=== PATIENT | male | born 1975 | race Caucasian/White ===

== ENCOUNTER 2020-12-07 08:03 | Emergency (ER) | payer SELFPAY ==
[2020-12-07 08:04] VITALS: BP 135/85; PULSE 97; RESP 18; TEMP 37; O2SAT 94; BMI 44.9
[2020-12-07 08:12] VITALS: O2SAT 91
[2020-12-07 08:30] VITALS: O2SAT 97
--- NOTE | 2020-12-07 08:36 | EKG12_ITS ---
Test Reason : Blood Pressure : / mmHG Vent. Rate : 080 BPM Atrial Rate : 080 BPM P-R Int : 146 ms QRS Dur : 094 ms QT Int : 376 ms P-R-T Axes : 039 006 031 degrees QTc Int : 433 ms Normal sinus rhythm Normal ECG Confirmed by KODY NOGUEIRA, EMIR ([id number]), content editor ASHLI ARIAS ([id number]) on 12/08/2020 8:21:28 AM Referred By: ERIC Confirmed By:MITRA AGTES MD
--- NOTE | 2020-12-07 08:36 | RAD_ITS ---
STUDY: X-RAY CHEST REASON FOR EXAM: Male, 45 years old. Cough TECHNIQUE: Single AP portable view of the chest. COMPARISON: None. FINDINGS: EKG electrodes are seen. Patchy bilateral pulmonary infiltrates more prominent in the left hemithorax. There is no demonstrated pleural abnormality. Normal size heart. Normal mediastinum and gustavo. Normal visualized pulmonary arteries. Normal visualized aortic arch and descending thoracic aorta. Normal visualized thoracic spine. Normal visualized ribs, clavicles, and shoulders. There is no demonstrated abnormality of the visualized soft tissue structures of the upper abdomen. RAD/Chest 1 View (Portable) IMPRESSION: Patchy bilateral pulmonary infiltrates more prominent in the left hemithorax. Electronically Signed: Jl Ceballos MD at 9:20 EDT , Service support ,
--- NOTE | 2020-12-07 08:36 | ED.VIS.GEN ---
History of Present Illness Chief Complaint: Shortness of Breath Informant: Patient Narrative: 45-year-old male states that last Friday he woke with headache loss of taste and smell myalgias and was tested for COVID-19 on . He states that test was positive. Over the past couple days he states his breathing has worsened. He notes significant fatigue. He states the past 2 days he has been fever free. Patient states he has been able to eat and drink. Diarrhea has been mild. He denies any known lung conditions. He denies being treated for any medical problems. Past Medical History - Allergies and Home Meds Allergies/Adverse Reactions: Allergies No Known Allergies Allergy (Verified 12/07/20 08:07) Primary Care Physician: Bean Marinelli DO [STAFF PHYSICIAN] - As Needed Past Medical History: None Surgical History: noncontributory Smoking Status: Never smoker Drugs: None Review of Systems General: Reports: Chills, Fever, Malaise. Denies: Sweats Eyes: Denies: Visual changes - bilaterally, Diplopia ENT: Reports: - - Loss of taste and smell. Denies: Rhinorrhea, Sore throat Cardiovascular: Denies: Chest pain, Palpitations Respiratory: Reports: Dyspnea, Cough, Dyspnea on exertion Gastrointestinal: Reports: Nausea, Diarrhea. Denies: Abdominal pain, Vomiting, Melena, Hematochezia Genitourinary: Denies: Dysuria, Hematuria, Frequency Musculoskeletal: Reports: Myalgias. Denies: Back pain, Extremity Pain Skin: Denies: Rash, Wounds Neurological: Reports: Headache. Denies: Weakness, Numbness Physical Exam Vital Signs/Narrative: Vital Signs Temp Pulse Resp BP Pulse Ox 12/07/20 08:04 98.6 F 97 18 135/85 H 94 Inital Vital Signs reviewed: Yes General: Well nourished, Well developed, Obese, No Acute Distress Head: Normocephalic, Atraumatic Eyes: Perrl, EOMI ENT: Moist mucous membranes, No rhinorrhea Neck: Supple, Nontender Cardiovascular: Regular rate, Regular rhythm, No murmurs Respiratory: No distress, CTA bilaterally, Chest nontender Abdomen: Soft, Nontender, Nondistended, Normal bowel sounds Back: Nontender, Normal Inspection Extremities: Nontender, No edema Skin: Normal color, No rash Neurological: Alert, Oriented x3, Cranial nerves II-XII grossly intact, Normal Strength, Normal Sensation Psychological: Normal affect, Normal Mood Diagnostic/Tx/Re-eval Clinical Impression(s) from Imaging Studies Chest X-Ray 12/07/20 08:36 IMPRESSION: Patchy bilateral pulmonary infiltrates more prominent in the left hemithorax. Electronically Signed: Jl Ceballos MD at 9:20 EDT , Service support , Chest CTA 12/07/20 09:51 IMPRESSION: Scattered bilateral patchy infiltrates in the tendency towards a peripheral distribution as described. This is suggestive of a pneumonitis associated with Covid19 infection. Electronically Signed: Jl Ceballos MD at 10:31 EDT , Service support , Laboratory Last Values WBC 7.6 K/mm3 (4.4-11.0) 12/07/20 08:25 RBC 4.97 M/mm3 (4.6-6.2) 12/07/20 08:25 Hgb 15.4 g/dL (13.0-16.5) 12/07/20 08:25 Hct 45.4 % (40-54) 12/07/20 08:25 MCV 91.3 fL (80-94) 12/07/20 08:25 MCH 31.0 pg (27.0-32.0) 12/07/20 08:25 MCHC 33.9 g/dL (32-36) 12/07/20 08:25 RDW Std Deviation 40.5 fl (35.1-43.9) 12/07/20 08:25 RDW Coeff of Annalisa 12.1 % (11.6-14.6) 12/07/20 08:25 Plt Count 198 K/mm3 (150-450) 12/07/20 08:25 MPV 10.1 fl (6.2-12.0) 12/07/20 08:25 Immature Gran % (Auto) 0.700 % (0.0-0.9) 12/07/20 08:25 Neut % (Auto) 65.0 % (47-70) 12/07/20 08:25 Lymph % (Auto) 24.0 % (19-41) 12/07/20 08:25 [place] % (Auto) 9.7 % (0-10) 12/07/20 08:25 Eos % (Auto) 0.3 % (0-5) 12/07/20 08:25 Baso % (Auto) 0.3 % (0-1) 12/07/20 08:25 Absolute Neuts (auto) 5.0 X10^3/uL (2.0-7.7) 12/07/20 08:25 Absolute Lymphs (auto) 1.83 X10^3/uL (0.83-4.51) 12/07/20 08:25 Nucleated RBC % 0 % (0-5) 12/07/20 08:25 Fibrinogen 611 mg/dl (203-444) H 12/07/20 08:25 D-Dimer Quant (PE/DVT) 0.80 FEU/ug/m (0.27-0.49) H* 12/07/20 08:25 Sodium 138 mmol/L (136-145) 12/07/20 08:25 Potassium 3.5 mmol/L (3.5-5.1) 12/07/20 08:25 Chloride 105 mmol/L (98-107) 12/07/20 08:25 Carbon Dioxide 28.0 mmol/L (21.0-32.0) 12/07/20 08:25 Anion Gap 5 (5-15) 12/07/20 08:25 BUN 14 mg/dL (7-18) 12/07/20 08:25 Creatinine 1.10 mg/dL (0.70-1.30) 12/07/20 08:25 Estim Creat Clear Calc 96.52 ml/min 12/07/20 08:25 Est GFR (MDRD) Af Amer 92 mL/min (>60) 12/07/20 08:25 Est GFR (MDRD) Non-Af 76 mL/min (>60) 12/07/20 08:25 BUN/Creatinine Ratio 12.7 RATIO (10-20) 12/07/20 08:25 Glucose 112 mg/dL (74-106) H 12/07/20 08:25 Lactic Acid 1.4 mmol/L (0.4-1.9) 12/07/20 09:07 Calcium 8.5 mg/dL (8.5-10.1) 12/07/20 08:25 Total Bilirubin 0.70 mg/dL (0.20-1.00) 12/07/20 08:25 AST 52 U/L (15-37) H 12/07/20 08:25 ALT 74 U/L (16-61) H 12/07/20 08:25 Alkaline Phosphatase 70 U/L (45-117) 12/07/20 08:25 Lactate Dehydrogenase 250 U/L (87-241) H 12/07/20 08:25 Total Creatine Kinase 231 U/L (39-308) 12/07/20 08:25 Troponin I < 0.015 ng/mL (<0.045) 12/07/20 08:25 C-React Prot Ext Range 98.10 mg/L (0.0-3.0) H 12/07/20 08:25 Total Protein 7.4 g/dL (6.4-8.2) 12/07/20 08:25 Albumin 3.2 g/dL (3.2-5.0) 12/07/20 08:25 Globulin 4.2 g/dL (2.2-4.2) 12/07/20 08:25 Albumin/Globulin Ratio 0.8 RATIO (0.9-2.4) L 12/07/20 08:25 Procalcitonin 0.08 ng/mL (0.00-0.09) 12/07/20 08:25 - Medical Decision Making Patient did not become hypoxic with ambulation from triage to his room. Interpretation of his chest x-ray is multifocal infiltrates in keeping with the COVID-19 diagnosis. His D-dimer was substantially elevated and therefore a CTA was ordered. Was negative for pulmonary embolism or effusions. Patient is maintaining his sats in the mid 90s on room air. Patient was advised that he may worsen and require a repeat examination in the emergency department and even hospitalization. We will start him on Decadron and albuterol MDI. Patient notes understanding of the plan. On the screening it appears the patient may qualify for a monoclonal antibody infusion. I will make that referral. ED Disposition - Plan for ED Patient: Disposition: Home or Assisted Living Diagnosis: COVID-19, Dyspnea Instructions: Coronavirus Disease 2019 (COVID-19): Caring for Yourself or Others Prescriptions: Dexamethasone [Decadron] 6 mg PO DAILY 5 Days #5 tablet Transmission Status: Received by [facility]/pharmacy #[id number] Albuterol Inhaler [Ventolin Hfa] 2 puff INHALATION Q4H PRN PRN #1 inhaler PRN Reason: Dyspnea Transmission Status: Received by [facility]/pharmacy #[id number] Referrals: Bean Marinelli DO [STAFF PHYSICIAN] - As Needed
--- NOTE | 2020-12-07 08:38 | NURSING ---
NO OLD EKGS
[2020-12-07 09:03] LABS: Absolute Lymphocyte Count 1.83 X10^3/uL (0.83-4.51); Basophil# 0.02 X10^3/uL; Basophil% 0.3 % (0-1); Eosinophil# 0.02 X10^3/uL; Eosinophils% 0.3 % (0-5); Hematocrit 45.4 % (40-54); Hemoglobin 15.4 g/dL (13.0-16.5); Lymphocyte # 1.83 X10^3/ul (0.83-4.51); Mean Corp Hgb Conc 33.9 g/dL (32-36); Mean Corpuscular Volume 91.3 fL (80-94); Mean Platelet Vol. 10.1 fl (6.2-12.0); Monocyte# 0.74 X10^3/uL; Monocyte% 9.7 % (0-10); NRBC Flagged by Analyzer 0 % (0-5); Neutrophil # 4.96 X10^3/uL (2.7-7.7); Platelet Count 198 K/mm3 (150-450); RBC Distribution Width CV 12.1 % (11.6-14.6); RBC Distribution Width SD 40.5 fl (35.1-43.9); Red Blood Count 4.97 M/mm3 (4.6-6.2); White Blood Count 7.6 K/mm3 (4.4-11.0)
[2020-12-07 09:04] VITALS: BP 114/79; PULSE 82; RESP 16; TEMP 37.1; O2SAT 95
[2020-12-07 09:11] LABS: Fibrinogen 611 mg/dl (203-444)
[2020-12-07 09:15] LABS: ALB/GLOB Ratio 0.8 RATIO (0.9-2.4); AST(SGOT) 52 U/L (15-37); Alanine Aminotransfer ALT/SGPT 74 U/L (16-61); Albumin, Serum 3.2 g/dL (3.2-5.0); Alkaline Phosphatase 70 U/L (45-117); Anion Gap 5 (5-15); BUN 14 mg/dL (7-18); BUN/Creat Ratio 12.7 RATIO (10-20); CPK Total, Creatine Kinase 231 U/L (39-308); Calcium,Total 8.5 mg/dL (8.5-10.1); Chloride 105 mmol/L (98-107); EST Glomerular Filtration Rate 76 mL/min (>60); Est Glom Filt Rate - Afr Amer 92 mL/min (>60); Estimated Creatinine Clearance 96.52 ml/min; Globulin 4.2 g/dL (2.2-4.2); Glucose 112 mg/dL (74-106); LDH 250 U/L (87-241); Potassium 3.5 mmol/L (3.5-5.1); Protein, Total 7.4 g/dL (6.4-8.2); Sodium Level 138 mmol/L (136-145)
[2020-12-07 09:20] LABS: Procalcitonin 0.08 ng/mL (0.00-0.09)
[2020-12-07 09:41] LABS: Lactic Acid 1.4 mmol/L (0.4-1.9)
--- NOTE | 2020-12-07 09:51 | CT_ITS ---
STUDY: CTA CHEST REASON FOR EXAM: Male, 45 years old. COVID 19 positive. Elevated DDimer Dyspnea. RADIATION DOSAGE (If Supplied By Facility): CTDIvol = ( 17.41 ) mGy, DLP = ( 601.59 ) mGycm TECHNIQUE: The examination was performed with the intravenous administration of IV 100mL Isovue-370. Post-processing of the angiographic images was performed, with multiplanar reformation and 3D reconstruction. Individualized dose optimization techniques were used for this CT. COMPARISON: Comparison is made with prior chest radiograph done earlier in the day. FINDINGS: Normal enhancement of the main pulmonary artery and right and left pulmonary arteries. Normal enhancement of the bilateral peripheral pulmonary arteries. There is no demonstrated pulmonary embolism. Normal thoracic aorta and visualized great vessels. There is no demonstrated aortic dissection. Normal heart and pericardium. Normal mediastinum. Normal hilar regions. Normal visualized trachea and bronchi. The lungs are well expanded. Patchy infiltrate is seen in the anterior right upper lobe. Scattered bilateral patchy infiltrates are seen in both upper lobes and lower lobes worse in the left hemithorax. There is a tendency toward peripheral distribution. This is suggestive of pneumonitis associated with Covid 19 Normal pleura. Normal chest wall structures. Normal osseous structures. Normal visualized upper abdomen. CT/CTA Chest W/WO Contrast IMPRESSION: Scattered bilateral patchy infiltrates in the tendency towards a peripheral distribution as described. This is suggestive of a pneumonitis associated with Covid19 infection. Electronically Signed: Jl Ceballos MD at 10:31 EDT , Service support ,
[2020-12-07 11:01] VITALS: BP 114/76; PULSE 81; RESP 18; O2SAT 92
== END 2020-12-07 11:02 | disposition home or self-care (01) ==
PROVIDERS: Emergency Provider Emergency Medicine
DX: U07.1 COVID-19 (principal); E66.9 Obesity, unspecified; Z68.41 Body mass index [BMI] 40.0-44.9, adult
CPT/HCPCS: 71045; 71275; 80053; 82550; 83605; 83615; 84145; 84484; 85025; 85379; 85384; 86140; 93005; 99285; Q9967; A4216

== ENCOUNTER 2020-12-08 14:26 | Outpatient (CLI) | payer SELFPAY ==
[2020-12-07 12:55] VITALS: BMI 44.9
[2020-12-08] VITALS (7 sets, daily range): BP systolic 123–133; BP diastolic 78–91; PULSE 68–80; RESP 16–18; TEMP 36.5–36.6; O2SAT 93–95; BMI 45.0
[2020-12-08] MEDS: 0.9% Saline Lock 10 ML Syringe IV ×2 (14:45→16:15)
== END 2020-12-08 17:15 | disposition home or self-care (01) ==
LOC: ICUOUT 14:27 → ICU 14:31
PROVIDERS: Referring Provider Nurse Practitioner Acute Care; Visit Provider Nurse Practitioner Acute Care
DX: U07.1 COVID-19 (principal)
CPT/HCPCS: J7050; M0243; A4216; Q0240

== ENCOUNTER → 2021-06-04 16:52 | Outpatient (CLI) | payer SELFPAY ==
[2021-06-04 17:50] LABS: Absolute Lymphocyte Count 4.05 X10^3/uL (0.83-4.51); Absolute Neutrophil Count 5.7 X10^3/uL (2.0-7.7); Basophil# 0.08 X10^3/uL; Basophil% 0.7 % (0-1); Eosinophil# 0.35 X10^3/uL; Eosinophils% 3.1 % (0-5); Hematocrit 47.8 % (40-54); Hemoglobin 16.6 g/dL (13.0-16.5); Lymphocyte # 4.05 X10^3/ul (0.83-4.51); Lymphocyte % 35.6 % (19-41); Mean Corp Hgb Conc 34.7 g/dL (32-36); Mean Corpuscular Hgb 31.7 pg (27.0-32.0); Mean Corpuscular Volume 91.2 fL (80-94); Mean Platelet Vol. 9.6 fl (6.2-12.0); Monocyte# 1.07 X10^3/uL; Monocyte% 9.4 % (0-10); NRBC Flagged by Analyzer 0 % (0-5); Neutrophil # 5.74 X10^3/uL (2.7-7.7); Neutrophil % 50.5 % (47-70); Platelet Count 290 K/mm3 (150-450); RBC Distribution Width CV 12.2 % (11.6-14.6); Red Blood Count 5.24 M/mm3 (4.6-6.2); White Blood Count 11.4 K/mm3 (4.4-11.0)
[2021-06-04 18:40] LABS: Vitamin B12 387 pg/mL (211-911); Vitamin D,25 Hydroxy 15.4 ng/mL
[2021-06-04 18:46] LABS: AST(SGOT) 27 U/L (15-37); Alanine Aminotransfer ALT/SGPT 49 U/L (16-61); Albumin, Serum 3.7 g/dL (3.2-5.0); Alkaline Phosphatase 78 U/L (45-117); Anion Gap 9 (5-15); BUN 15 mg/dL (7-18); BUN/Creat Ratio 15.2 RATIO (10-20); Calcium,Total 9.2 mg/dL (8.5-10.1); Chloride 107 mmol/L (98-107); Cholesterol 239 mg/dL (200); Creatinine, Serum 0.99 mg/dL (0.70-1.30); EST Glomerular Filtration Rate 86 mL/min (>60); Est Glom Filt Rate - Afr Amer 104 mL/min (>60); Globulin 3.8 g/dL (2.2-4.2); Glucose 80 mg/dL (74-106); High Density Lipoprotein 29 mg/dL; Potassium 3.6 mmol/L (3.5-5.1); Protein, Total 7.5 g/dL (6.4-8.2); Sodium Level 140 mmol/L (136-145); T4 Free Direct 0.85 ng/dL (0.76-1.46); Thyroid Stim Hormone (TSH) 1.42 uIU/mL (0.358-3.74); Triglycerides 519 mg/dL
[2021-06-09 17:07] LABS: Testosterone, Free 9.93 ng/dL (5.00-21.00)
[2021-06-09 18:08] LABS: Testosterone, % Free 3.79 % (1.50-4.20); Testosterone, Total 262 ng/dL (264-916)
== END ==
PROVIDERS: Visit Provider Family Medicine
DX: R53.83 Other fatigue (principal); E66.01 Morbid (severe) obesity due to excess calories
CPT/HCPCS: 36415; 80053; 80061; 82306; 82607; 84402; 84403; 84439; 84443; 85025

== ENCOUNTER → 2021-06-14 08:11 | Outpatient (CLI) | payer SELFPAY ==
[2021-06-14 10:51] LABS: Cholesterol 212 mg/dL (200); High Density Lipoprotein 35 mg/dL; Triglycerides 321 mg/dL; Very Low Density Lipoprotein 64 mg/dL (5-40)
== END ==
PROVIDERS: PCP Family Medicine; Referring Provider Family Medicine; Visit Provider Family Medicine
DX: E66.01 Morbid (severe) obesity due to excess calories (principal)
CPT/HCPCS: 36415; 80061

== ENCOUNTER → 2024-04-08 | Outpatient (CLI) | payer SELFPAY ==
[2024-04-08 17:34] LABS: Absolute Lymphocyte Count 3.84 X10^3/uL (0.83-4.51); Basophil# 0.08 X10^3/uL; Basophil% 0.7 % (0-1); Eosinophil# 0.31 X10^3/uL; Eosinophils% 2.8 % (0-5); Hematocrit 49.9 % (40-54); Lymphocyte # 3.84 X10^3/ul (0.83-4.51); Lymphocyte % 34.8 % (19-41); Mean Corp Hgb Conc 34.1 g/dL (32-36); Mean Corpuscular Volume 90.9 fL (80-94); Mean Platelet Vol. 9.7 fl (6.2-12.0); Monocyte# 0.78 X10^3/uL; Monocyte% 7.1 % (0-10); NRBC Flagged by Analyzer 0 % (0-5); Neutrophil # 5.96 X10^3/uL (2.7-7.7); Neutrophil % 53.9 % (47-70); Platelet Count 265 K/mm3 (150-450); RBC Distribution Width CV 12.1 % (11.6-14.6); RBC Distribution Width SD 40.6 fl (35.1-43.9); Red Blood Count 5.49 M/mm3 (4.6-6.2); White Blood Count 11.1 K/mm3 (4.4-11.0)
[2024-04-08 18:03] LABS: Vitamin D,25 Hydroxy 23.6 ng/mL
[2024-04-08 18:15] LABS: ALB/GLOB Ratio 0.9 RATIO (0.9-2.4); AST(SGOT) 27 U/L (15-37); Alanine Aminotransfer ALT/SGPT 43 U/L (16-61); Albumin, Serum 3.7 g/dL (3.2-5.0); Alkaline Phosphatase 78 U/L (45-117); Anion Gap 8 (5-15); BUN 15 mg/dL (7-18); BUN/Creat Ratio 16.5 RATIO (10-20); Calcium,Total 9.1 mg/dL (8.5-10.1); Chloride 108 mmol/L (98-107); Cholesterol 241 mg/dL (200); Creatinine, Serum 0.91 mg/dL (0.70-1.30); EST Glomerular Filtration Rate 93 mL/min (>60); Est Glom Filt Rate - Afr Amer 113 mL/min (>60); Globulin 3.9 g/dL (2.2-4.2); Glucose 102 mg/dL (74-106); High Density Lipoprotein 35 mg/dL; Magnesium 2.3 mg/dL (1.6-2.6); Protein, Total 7.6 g/dL (6.4-8.2); Sodium Level 140 mmol/L (136-145); Triglycerides 327 mg/dL; Very Low Density Lipoprotein 65 mg/dL (5-40)
[2024-04-13 04:55] LABS: Ferritin 1020 ng/mL (26-388); Iron 137 ug/dL (65-175); Iron Binding Capacity,Total 254 ug/dL (250-450); PERCENT IRON SATURATION 53.9 % (15.0-55.0)
[2024-04-13 15:46] LABS: Hemoglobin A1c 5.8 % (3.8-5.6)
[2024-04-14 09:09] LABS: Transferrin 209 mg/dL (177-329)
== END | disposition home or self-care (01) ==
LOC: MFPLAB 16:17
PROVIDERS: PCP Family Medicine; Visit Provider Family Medicine
DX: R73.09 Other abnormal glucose (principal); D75.1 Secondary polycythemia; I10 Essential (primary) hypertension; E55.9 Vitamin D deficiency, unspecified
CPT/HCPCS: 36415; 80053; 80061; 82306; 82728; 83036; 83540; 83550; 83735; 84443; 84466; 85025

== ENCOUNTER → 2024-10-22 | Outpatient (CLI) | payer SELFPAY ==
[2024-10-22 11:00] LABS: Hemoglobin A1c 5.5 % (<=5.6)
[2024-10-22 11:01] LABS: Absolute Lymphocyte Count 3.07 X10^3/uL (0.83-4.51); Absolute Neutrophil Count 5.3 X10^3/uL (2.0-7.7); Basophil# 0.06 X10^3/uL; Basophil% 0.6 % (0-1); Eosinophil# 0.16 X10^3/uL; Eosinophils% 1.7 % (0-5); Hemoglobin 14.9 g/dL (13.0-16.5); Lymphocyte # 3.07 X10^3/ul (0.83-4.51); Lymphocyte % 32.7 % (19-41); Mean Corp Hgb Conc 33.9 g/dL (32-36); Mean Corpuscular Hgb 32.3 pg (27.0-32.0); Mean Corpuscular Volume 95.2 fL (80-94); Mean Platelet Vol. 9.8 fl (6.2-12.0); Monocyte# 0.74 X10^3/uL; Monocyte% 7.9 % (0-10); NRBC Flagged by Analyzer 0 % (0-5); Neutrophil # 5.28 X10^3/uL (2.7-7.7); Neutrophil % 56.2 % (47-70); Platelet Count 267 K/mm3 (150-450); RBC Distribution Width CV 12.4 % (11.6-14.6); RBC Distribution Width SD 43.1 fl (35.1-43.9); Red Blood Count 4.62 M/mm3 (4.6-6.2); White Blood Count 9.4 K/mm3 (4.4-11.0)
[2024-10-22 11:13] LABS: ALB/GLOB Ratio 1.4 RATIO (0.9-2.4); AST(SGOT) 26 U/L (<=37); Alanine Aminotransfer ALT/SGPT 33 U/L (<=46); Alkaline Phosphatase 64 U/L (40-129); Anion Gap 14 (5-15); BUN 19 mg/dL (4-19); BUN/Creat Ratio 19.5 RATIO (10-20); Calcium,Total 9.2 mg/dL (7.6-11.0); Carbon Dioxide 20.9 mmol/L (21.0-32.0); Chloride 104 mmol/L (98-108); Cholesterol 237 mg/dL (<=200); Creatinine, Serum 0.99 mg/dL (0.70-1.20); EST Glomerular Filtration Rate 93 (>60); Globulin 2.8 g/dL (2.2-4.2); Glucose 130 mg/dL (70-99); High Density Lipoprotein 38 mg/dL; Low Density Lipoprotein Calc. 147 mg/dL; Magnesium 2.2 mg/dL (1.5-2.2); Protein, Total 6.8 g/dL (5.9-8.4); Sodium Level 139 mmol/L (133-145); Triglycerides 263 mg/dL; Very Low Density Lipoprotein 53 mg/dL (5-40)
== END | disposition home or self-care (01) ==
LOC: MFPLAB 09:01
PROVIDERS: PCP Family Medicine; Referring Provider Family Medicine; Visit Provider Family Medicine
DX: R73.02 Impaired glucose tolerance (oral) (principal); I10 Essential (primary) hypertension; E55.9 Vitamin D deficiency, unspecified
CPT/HCPCS: 36415; 80053; 80061; 83036; 83735; 85025